=== PATIENT | male | born 1955 | race Asian ===

== ENCOUNTER 2018-12-02 20:17 | Emergency (ER) | payer OTHER ==
[~2018-12-02] VITALS: Ht 162.6 cm; Wt 74.8 kg
[2018-12-02 20:19] VITALS: PULSE 96; Ht 162.6 cm; Wt 74.8 kg
[2018-12-02 23:53] VITALS: BP 139/80; RESP 18
--- NOTE | 2018-12-03 01:17 | ERD ---
ER Documentation Chief Complaint Chief Complaint WOUND RECHECK; HAD I&D RIGHT BACK OF SHOULDER FROM SUNDAY HPI 63-year-old male presents for reevaluation of an abscess on the right shoulder. Patient states that he has improvement since Sunday. He states he is compliant with Keflex and Bactrim. Denies any fever ROS All systems reviewed and are negative except as per history of present illness. Allergies Allergies: Coded Allergies: No Known Allergy (Unverified , 12/02/18) PMhx/Soc Medical and Surgical Hx: pt denies Medical Hx, pt denies Surgical Hx Hx Alcohol Use: No Hx Substance Use: No Hx Tobacco Use: No Smoking Status: Never smoker Physical Exam Vitals Vital Signs Date Temp Pulse Resp B/P (MAP) Pulse Ox O2 O2 Flow FiO2 Time Delivery Rate 12/02/18 18 139/80 98 Room Air 23:53 (99) 12/02/18 99.0 96 18 14/81 (59) 97 20:19 Physical Exam Const: No acute distress Head: Atraumatic Eyes: Normal Conjunctiva ENT: Normal External Ears, Nose and Mouth. Neck: Full range of motion. No meningismus. Resp: Clear to auscultation bilaterally Cardio: Regular rate and rhythm, no murmurs Abd: Soft, non tender, non distended. Normal bowel sounds Skin: Abscess on the right shoulder Back: No midline or flank tenderness Ext: No cyanosis, or edema Neur: Awake and alert Psych: Normal Mood and Affect Procedures/MDM 63-year-old male presents for reevaluation of an abscess on his right shoulder. Patient has been seen last Sunday and was given Keflex and Bactrim. Patient is compliant with medications, he states that there is improvement in his sympto ms. I have discussed to return in 2 days for reevaluation. Stable to discharged home Departure Diagnosis: Primary Impression: Abscess Condition: Stable Patient Instructions: Abscess, Antiobiotic Treatment Only Referrals: NO PRIMARY,CARE PHYSICIAN Additional Instructions: Follow up in 2 days in your clinic for wound check. Return to this facility if you are not improving as expected. KRISTAN QUINN PA-C Dec 03, 2018 01:17
== END 2018-12-02 23:54 | disposition home or self-care (01) ==
LOC: FTE 20:17
DX: L02.413 Cutaneous abscess of right upper limb (principal)
CPT/HCPCS: 99282